=== PATIENT | male | born 1965 | race Caucasian/White ===

== ENCOUNTER 2018-09-26 09:33 | Inpatient (IN) | payer OTHER ==
[2018-09-26 10:08] VITALS: BMI 26.6
--- NOTE | 2018-09-26 10:52 | HP ---
COWS - Scale Resting Pulse: 0= NE 80 or Below Sweatin= Chills/Flushing Restless Observation: 3= Extraneous Movement Pupil Size: 0= Normal to Room Light Bone or Joint Aches: 4=Acute Joint/Muscle Pain Runny Nose/ Eye Tearin= Runny Nose/Eyes GI Upset > 30mins: 2= Nausea/Diarrhea Tremor Observation: 2= Slight Tremor Visible Yawning Observation: 0= None Anxiety or Irritability: 2=Irritable/Anxious Goose Flesh Skin: 0=Smooth Skin COWS Score: 16 CIWA Score - Admission Criteria OASAS Guidelines: Admission for Medically Managed Detox: Requires at least one of the followin. CIWA greater than 12 2. Seizures within the past 24 hours 3. Delirium tremens within the past 24 hours 4. Hallucinations within the past 24 hours 5. Acute intervention needed for co occurring medical disorder 6. Acute intervention needed for co occurring psychiatric disorder 7. Severe withdrawal that cannot be handled at a lower level of care (continued vomiting, continued diarrhea, abnormal vital signs) requiring intravenous medication and/or fluids 8. Admission ROS S - HPI Allergies/Adverse Reactions: Allergies Allergy/AdvReac Type Severity Reaction Status Date / Time Penicillins Allergy Hives Verified 09/26/18 10:01 History of Present Illness: pt here requesting detox from heroin use , reports first age of use 24 ,states this is the first time he is seeking detox , usually 1 bundle heroin daily via inhalation , denies IVDU , latest use yesterday evening , longest sobriety 5-6 years while living in [place] , relapse 4 years ago current symptoms as above . denies other illicits or etoh tobacco : 05/04 ppd PMHX : denies pshx : right wrist surgery for injury 10 years ago psych : depression , denies current SI / HI . SHx : lives w/ , works in construction , denies legal issues . Exam Limitations: Clinical Condition - Ebola screening Have you traveled outside of the country in the last 21 days: No (N) Have you had contact with anyone from an Ebola affected area: No Do you have a fever: No - Review of Systems Constitutional: See HPI EENT: reports: See HPI, Nose Congestion, Other (reading glasses) Respiratory: reports: No Symptoms reported Cardiac: reports: No Symptoms Reported GI: reports: See HPI, Nausea, Poor Appetite : reports: No Symptoms Reported Musculoskeletal: reports: See HPI, Back Pain (chronic LBP) Integumentary: reports: No Symptoms Reported Endocrine: reports: No Symptoms Reported Psychiatric: reports: Orientated x3, Agitated, Anxious Patient History - Smoking Cessation Smoking history: Current every day smoker Have you smoked in the past 12 months: Yes Hx Chewing Tobacco Use: No Initiated information on smoking cessation: No - Substances abused Heroin Substance route: Inhalation Frequency: Daily Amount used: 1 bundle Age of first use: 23 Date of last use: 09/25/18 Family Disease History - Family Disease History Family Disease History: Heart Disease: Mother (mild cva , htn , borderline DM ) , Other: Grandparent (htn), Father (bph), Brother (2, A & W ), Sister (1, a & W ), Son (14 , A & W lives in [place] ) Admission Physical Exam S - Vital Signs Vital Signs: Vital Signs - 24 hr 09/26/18 09/26/18 09:54 10:34 Temperature 97.5 F L 97.5 F L Pulse Rate 60 60 Respiratory 18 18 Rate Blood Pressure 152/73 152/73 - Physical General Appearance: Yes: Moderate Distress, Anxious HEENTM: Yes: EOMI, Hearing grossly Normal, Normocephalic, Normal Voice, Nasal Congestion, Rhinorrhea Respiratory: Yes: Chest Non-Tender, Lungs Clear, Normal Breath Sounds Neck: Yes: No masses,lesions,Nodules, Trachea in good position Cardiology: Yes: Regular Rhythm, Regular Rate, S1, S2 Abdominal: Yes: Non Tender, Soft Back: Yes: Normal Inspection Musculoskeletal: Yes: Gait Steady Extremities: Yes: Normal Range of Motion, Non-Tender, Tremors Neurological: Yes: Fully Oriented, Alert, Motor Strength 5/5, Normal Mood/Affect Integumentary: Yes: Warm, Other (tattoos) - Diagnostic (1) Opioid dependence Current Visit: Yes Status: Acute Qualifiers: Substance use status: in withdrawal Qualified Code(s): F11.23 - Opioid dependence with withdrawal Breathalyzer - Breathalyzer Breathalyzer: 0 Urine Drug Screen - Test Device Lot number: [id number] Expiration date: 08/30/19 - Control Is test valid?: No - Results Drug screen NEGATIVE: No Urine drug screen results: MOP-Opiates Inpatient Rehab Admission - Rehab Decision to Admit Inpatient rehab admission?: No
[2018-09-26] MEDS ORDERED: MAG HYDROX/AL HYDROX/SIMETH 30 ML UNIT-DOSE CUP PO PRN (11:01)
[2018-09-26] MEDS ORDERED: MENTHOL/PHENOL 1 EACH UD MM PRN (11:01)
[2018-09-26] MEDS ORDERED: IBUPROFEN 400 MG TABLET (FP) PO PRN (11:01)
[2018-09-26] MEDS ORDERED: BISMUTH SUBSALICYLATE 262 MG/15 ML BTL PO PRN (11:01)
[2018-09-26] MEDS ORDERED: cloNIDine HCL 0.1 MG TABLET PO PRN (11:01)
[2018-09-26] MEDS ORDERED: ACETAMINOPHEN 325 MG TABLET (FP) PO PRN ×2 (11:01)
[2018-09-26] MEDS ORDERED: hydrOXYzine PAMOATE 25 MG CAPSULE (FP) PO PRN (11:01)
[2018-09-26] MEDS ORDERED: MAGNESIUM CITRATE 300 ML BOTTLE PO PRN (11:01)
[2018-09-26] MEDS ORDERED: MAGNESIUM HYDROX 2400MG/30ML ORAL SUSPENSION 30 ML CUP PO PRN (11:01)
[2018-09-26] MEDS ORDERED: MELATONIN 5 MG TABLETS PO PRN (11:01)
[2018-09-26] MEDS ORDERED: METHOCARBAMOL 500 MG TABLET PO PRN (11:01)
[2018-09-26] MEDS ORDERED: METHADONE HCL 10 MG TABLET (FOR DETOX USE ONLY) PO ONE (11:35)
--- NOTE | 2018-09-26 14:10 | EKG ---
Test Reason : Blood Pressure : / mmHG Vent. Rate : 053 BPM Atrial Rate : 053 BPM P-R Int : 110 ms QRS Dur : 092 ms QT Int : 410 ms P-R-T Axes : 059 038 038 degrees QTc Int : 384 ms SINUS BRADYCARDIA WITH SHORT ND OTHERWISE NORMAL ECG NO PREVIOUS ECGS AVAILABLE Confirmed by Art Moncada MD ([id number]) on 09/26/2018 2:09:57 PM Referred By: Confirmed By:Art Moncada MD
[2018-09-26] MEDS: THIAMINE HCL 100 MG TABLET (FP) PO SCH (22:11)
[2018-09-27] MEDS ORDERED: ONDANSETRON *ODT* 4 MG TABLET SL ONE (09:03)
[2018-09-27] MEDS ORDERED: METHADONE HCL 10 MG TABLET (FOR DETOX USE ONLY) PO ONE (10:00)
[2018-09-27 10:13] LABS: HEMATOCRIT 43.3 % (35.4-49); HEMOGLOBIN 14.4 GM/dL (11.7-16.9); MCH 30.4 pg (25.7-33.7); MCHC 33.2 g/dl (32.0-35.9); MEAN CELL VOLUME 91.4 fl (80-96); MEAN PLT VOLUME 10.3 fl (7.5-11.1); PLATELET COUNT 230 K/MM3 (134-434); RBC 4.74 M/mm3 (4.00-5.60); RDW 13.7 % (11.9-15.9); WHITE BLOOD COUNT 9.5 K/mm3 (4.0-10.0)
[2018-09-27 10:25] LABS: ALBUMIN 3.9 g/dl (3.4-5.0); BILIRUBIN,TOTAL 0.6 mg/dL (0.2-1); CALCIUM 9.5 mg/dL (8.5-10.1); CREATININE 0.9 mg/dL (0.55-1.3); POTASSIUM 3.8 mmol/L (3.5-5.1); TOT PROT 7.1 g/dl (6.4-8.2)
[2018-09-27] MEDS: PRENATAL VITAMINS W/ FOLIC ACID TABLET (FP) PO SCH (10:39)
--- NOTE | 2018-09-27 11:08 | PN ---
BHS COWS - Scale Resting Pulse: 0= [place] 80 or Below Sweatin= Chills/Flushing Restless Observation: 0= Sits Still Pupil Size: 1= Pupils >than Normal Bone or Joint Aches: 1= Mild Discomfort Runny Nose/ Eye Tearin= None GI Upset > 30mins: 3= Vomiting/Diarrhea Tremor Observation of Outstretched Hands: 2= Slight Tremor Visible Yawning Observation: 1= 1-2x During Session Anxiety or Irritability: 2=Irritable/Anxious Goose Flesh Skin: 3=Piloerection COWS Score: 14 BHS Progress Note (SOAP) Subjective: vomited x 1 after breakfast zofran 4 mg sl x 1 Objective: 09/27/18 11:07 Vital Signs Temperature 97.9 F 09/27/18 09:12 Pulse Rate 51 L 09/27/18 09:12 Respiratory Rate 18 09/27/18 09:12 Blood Pressure 131/75 09/27/18 09:12 O2 Sat by Pulse Oximetry (%) Laboratory Last Values WBC 9.5 K/mm3 (4.0-10.0) 09/27/18 07:00 RBC 4.74 M/mm3 (4.00-5.60) 09/27/18 07:00 Hgb 14.4 GM/dL (11.7-16.9) 09/27/18 07:00 Hct 43.3 % (35.4-49) 09/27/18 07:00 MCV 91.4 fl (80-96) 09/27/18 07:00 MCH 30.4 pg (25.7-33.7) 09/27/18 07:00 MCHC 33.2 g/dl (32.0-35.9) 09/27/18 07:00 RDW 13.7 % (11.9-15.9) 09/27/18 07:00 Plt Count 230 K/MM3 (134-434) 09/27/18 07:00 MPV 10.3 fl (7.5-11.1) 09/27/18 07:00 Sodium 141 mmol/L (136-145) 09/27/18 07:00 Potassium 3.8 mmol/L (3.5-5.1) 09/27/18 07:00 Chloride 106 mmol/L (98-107) 09/27/18 07:00 Carbon Dioxide 24 mmol/L (21-32) 09/27/18 07:00 Anion Gap 11 MMOL/L (8-16) 09/27/18 07:00 BUN 13 mg/dL (7-18) 09/27/18 07:00 Creatinine 0.9 mg/dL (0.55-1.3) 09/27/18 07:00 Est GFR (CKD-EPI)AfAm 114.21 09/27/18 07:00 Est GFR (CKD-EPI)NonAf 98.54 09/27/18 07:00 Random Glucose 107 mg/dL (74-106) H 09/27/18 07:00 Calcium 9.5 mg/dL (8.5-10.1) 09/27/18 07:00 Total Bilirubin 0.6 mg/dL (0.2-1) 09/27/18 07:00 AST 17 U/L (15-37) 09/27/18 07:00 ALT 20 U/L (13-61) 09/27/18 07:00 Alkaline Phosphatase 71 U/L (45-117) 09/27/18 07:00 Total Protein 7.1 g/dl (6.4-8.2) 09/27/18 07:00 Albumin 3.9 g/dl (3.4-5.0) 09/27/18 07:00 lab noted Assessment: 09/27/18 11:08 withdrawal sx Plan: continue detox
[2018-09-27] MEDS: THIAMINE HCL 100 MG TABLET (FP) PO SCH (22:40)
[2018-09-28] MEDS ORDERED: METHADONE HCL 10 MG TABLET (FOR DETOX USE ONLY) PO ONE (10:00)
[2018-09-28] MEDS: PRENATAL VITAMINS W/ FOLIC ACID TABLET (FP) PO SCH (10:23)
--- NOTE | 2018-09-28 11:45 | PN ---
BHS COWS - Scale Resting Pulse: 0= [place] 80 or Below Sweatin= Chills/Flushing Restless Observation: 1= Difficult to Sit Still Pupil Size: 1= Pupils >than Normal Bone or Joint Aches: 1= Mild Discomfort Runny Nose/ Eye Tearin= Nasal Congestion GI Upset > 30mins: 1= Stomach Cramp Tremor Observation of Outstretched Hands: 1= Tremor [place], Not Seen Yawning Observation: 2= >3x During Session Anxiety or Irritability: 2=Irritable/Anxious Goose Flesh Skin: 0=Smooth Skin COWS Score: 11 S Progress Note (SOAP) Subjective: doing better today tolerate food and fluid well Objective: 09/28/18 11:44 Vital Signs Temperature 98.1 F 09/28/18 09:19 Pulse Rate 67 09/28/18 09:19 Respiratory Rate 18 09/28/18 09:19 Blood Pressure 137/78 09/28/18 09:19 O2 Sat by Pulse Oximetry (%) Laboratory Last Values WBC 9.5 K/mm3 (4.0-10.0) 09/27/18 07:00 RBC 4.74 M/mm3 (4.00-5.60) 09/27/18 07:00 Hgb 14.4 GM/dL (11.7-16.9) 09/27/18 07:00 Hct 43.3 % (35.4-49) 09/27/18 07:00 MCV 91.4 fl (80-96) 09/27/18 07:00 MCH 30.4 pg (25.7-33.7) 09/27/18 07:00 MCHC 33.2 g/dl (32.0-35.9) 09/27/18 07:00 RDW 13.7 % (11.9-15.9) 09/27/18 07:00 Plt Count 230 K/MM3 (134-434) 09/27/18 07:00 MPV 10.3 fl (7.5-11.1) 09/27/18 07:00 Sodium 141 mmol/L (136-145) 09/27/18 07:00 Potassium 3.8 mmol/L (3.5-5.1) 09/27/18 07:00 Chloride 106 mmol/L (98-107) 09/27/18 07:00 Carbon Dioxide 24 mmol/L (21-32) 09/27/18 07:00 Anion Gap 11 MMOL/L (8-16) 09/27/18 07:00 BUN 13 mg/dL (7-18) 09/27/18 07:00 Creatinine 0.9 mg/dL (0.55-1.3) 09/27/18 07:00 Est GFR (CKD-EPI)AfAm 114.21 09/27/18 07:00 Est GFR (CKD-EPI)NonAf 98.54 09/27/18 07:00 Random Glucose 107 mg/dL (74-106) H 09/27/18 07:00 Calcium 9.5 mg/dL (8.5-10.1) 09/27/18 07:00 Total Bilirubin 0.6 mg/dL (0.2-1) 09/27/18 07:00 AST 17 U/L (15-37) 09/27/18 07:00 ALT 20 U/L (13-61) 09/27/18 07:00 Alkaline Phosphatase 71 U/L (45-117) 09/27/18 07:00 Total Protein 7.1 g/dl (6.4-8.2) 09/27/18 07:00 Albumin 3.9 g/dl (3.4-5.0) 09/27/18 07:00 RPR Titer Nonreactive (NONREACTIVE) 09/27/18 07:00 HIV 1&2 Antibody Screen Negative 09/27/18 07:00 HIV P24 Antigen Negative 09/27/18 07:00 lab noted Assessment: 09/28/18 11:44 opiate withdrawal sx Plan: continue detox
[2018-09-28] MEDS: THIAMINE HCL 100 MG TABLET (FP) PO SCH (22:33)
[2018-09-29] MEDS ORDERED: METHADONE HCL 10 MG TABLET (FOR DETOX USE ONLY) PO ONE (10:00)
[2018-09-29] MEDS: PRENATAL VITAMINS W/ FOLIC ACID TABLET (FP) PO SCH (10:04)
--- NOTE | 2018-09-29 12:30 | PN ---
BHS COWS - Scale Resting Pulse: 0= [place] 80 or Below Sweatin= Chills/Flushing Restless Observation: 1= Difficult to Sit Still Pupil Size: 0= Normal to Room Light Bone or Joint Aches: 1= Mild Discomfort Runny Nose/ Eye Tearin= Nasal Congestion GI Upset > 30mins: 1= Stomach Cramp Tremor Observation of Outstretched Hands: 1= Tremor [place], Not Seen Yawning Observation: 0= None Anxiety or Irritability: 1=Feels Anxious/Irritable Goose Flesh Skin: 0=Smooth Skin COWS Score: 7 BHS Progress Note (SOAP) Subjective: alert,irritable,anxious,interrupted sleep,aching pain Objective: 09/29/18 12:29 Vital Signs Temperature 98.6 F 09/29/18 09:40 Pulse Rate 70 09/29/18 09:40 Respiratory Rate 18 09/29/18 09:40 Blood Pressure 118/80 09/29/18 09:40 O2 Sat by Pulse Oximetry (%) Assessment: 09/29/18 12:30 withdrawal symptom Plan: continue detox,discharge in am
[2018-09-29] MEDS: THIAMINE HCL 100 MG TABLET (FP) PO SCH (22:43)
[2018-09-30] MEDS ORDERED: METHADONE HCL 5 MG TABLET (FOR DETOX USE ONLY) PO ONE (06:00)
[2018-09-30 06:06] VITALS: BP 109/69; PULSE 63; TEMP 97.7
--- NOTE | 2018-09-30 17:55 | DS ---
[facility] Detox Discharge Summary Admission Date: 09/26/18 Discharge Date: 09/30/18 - History Present History: Opioid Dependence Additional Comments: PATIENT GOING HOME FOR TIME BEING, WILL FOLLOW-UP AND APPLY FOR ADMISSION ON HIS OWN TO [facility] ([place], [place]) IN THE NEXT FEW DAYS. PATIENT LEFT DETOX UNIT IN STABLE MEDICAL CONDITION. Pertinent Past History: Depression, History Of Surgery For Injury To Right Wrist. - Physical Exam Results Vital Signs: Vital Signs Temperature 97.7 F 09/30/18 06:06 Pulse Rate 63 09/30/18 06:06 Respiratory Rate 18 09/30/18 06:06 Blood Pressure 109/69 09/30/18 06:06 O2 Sat by Pulse Oximetry (%) Pertinent Admission Physical Exam Findings: WITHDRAWAL SYMPTOMS. Laboratory Tests 09/27/18 09/27/18 09/27/18 07:00 07:00 07:00 WBC 9.5 RBC 4.74 Hgb 14.4 Hct 43.3 MCV 91.4 MCH 30.4 MCHC 33.2 RDW 13.7 Plt Count 230 MPV 10.3 Sodium 141 Potassium 3.8 Chloride 106 Carbon Dioxide 24 Anion Gap 11 BUN 13 Creatinine 0.9 Est GFR (CKD-EPI)AfAm 114.21 Est GFR (CKD-EPI)NonAf 98.54 Random Glucose 107 H Calcium 9.5 Total Bilirubin 0.6 AST 17 ALT 20 Alkaline Phosphatase 71 Total Protein 7.1 Albumin 3.9 RPR Titer Nonreactive HIV 1&2 Antibody Screen HIV P24 Antigen 09/27/18 07:00 WBC RBC Hgb Hct MCV MCH MCHC RDW Plt Count MPV Sodium Potassium Chloride Carbon Dioxide Anion Gap BUN Creatinine Est GFR (CKD-EPI)AfAm Est GFR (CKD-EPI)NonAf Random Glucose Calcium Total Bilirubin AST ALT Alkaline Phosphatase Total Protein Albumin RPR Titer HIV 1&2 Antibody Screen Negative HIV P24 Antigen Negative LABS NOTED. - Treatment Hospital Course: Detox Protocol Followed, Detoxed Safely, Responded well, Discharged Condition Good, Rehab Referral Accepted Patient has Accepted a Rehab Referral to: [facility] ([place], [place]). - Medication Discharge Medications: Ambulatory Orders NK [No Known Home Medication] 09/26/18 - Diagnosis (1) Opioid dependence Status: Acute Qualifiers: Substance use status: in withdrawal Qualified Code(s): F11.23 - Opioid dependence with withdrawal - AMA Did Patient Leave Against Medical Advice: No
== END 2018-09-30 08:36 | disposition home or self-care (01) | DRG 897 ==
LOC: YASAS 09:33 → Y3N 11:24
PROVIDERS: ADMIT Surgery; ATTEND Surgery
PROC: HZ2ZZZZ Detoxification Services for Substance Abuse Treatment (ICD-10-PCS; principal; 2018-09-26)
DX: F11.23 Opioid dependence with withdrawal (principal); F17.210 Nicotine dependence, cigarettes, uncomplicated; Z88.0 Allergy status to penicillin
CPT/HCPCS: 36415; 71045-TC-FY; 80053; 85027; 86593; 87389; 93005; 93010

== ENCOUNTER 2021-06-01 16:09 | Inpatient (IN) | payer OTHER ==
[2021-06-01] MEDS ORDERED: MAGNESIUM HYDROX 2400MG/30ML ORAL SUSPENSION 30 ML CUP PO PRN (18:52)
[2021-06-01] MEDS ORDERED: BISMUTH SUBSALICYLATE 524 MG/30 ML PO PRN (18:52)
[2021-06-01] MEDS ORDERED: ACETAMINOPHEN 325 MG TABLET (FP) PO PRN ×2 (18:52)
[2021-06-01] MEDS ORDERED: DICYCLOMINE HCL 10 MG CAPSULE PO PRN (18:52)
[2021-06-01] MEDS ORDERED: MENTHOL/PHENOL 1 EACH UD MM PRN (18:52)
[2021-06-01] MEDS ORDERED: P-EPHED 60MG/TRIPROLIDI 2.5MG TABLET PO PRN (18:52)
[2021-06-01] MEDS ORDERED: MAGNESIUM CITRATE 300 ML BOTTLE PO PRN (18:52)
[2021-06-01] MEDS ORDERED: ONDANSETRON *ODT* 4 MG TABLET SL PRN (18:52)
[2021-06-01] MEDS ORDERED: MAG HYDROX/AL HYDROX/SIMETH 30 ML UNIT-DOSE CUP PO PRN (18:52)
[2021-06-01] MEDS ORDERED: cloNIDine HCL 0.1 MG TABLET PO PRN (18:55)
[2021-06-01] MEDS ORDERED: methaDONE HCL 10 MG TABLET (FOR DETOX USE ONLY) PO ONE (23:00)
[2021-06-01 23:20] VITALS: BMI 24.9
[2021-06-02] MEDS ORDERED: methaDONE HCL 10 MG TABLET (FOR DETOX USE ONLY) PO ONE ×2 (01:00→10:00)
[2021-06-02] MEDS: THIAMINE HCL 100 MG TABLET (FP) PO SCH ×2 (01:06→22:27)
[2021-06-02] MEDS: MELATONIN 5 MG TABLETS PO SCH ×2 (01:06→22:27)
[2021-06-02] MEDS ORDERED: methaDONE HCL 10 MG TABLET (FOR DETOX USE ONLY) ONE (09:15)
[2021-06-02] MEDS: hydrOXYzine PAMOATE 25 MG CAPSULE (FP) PO PRN ×3 (10:25→22:27)
[2021-06-02] MEDS: METHOCARBAMOL 500 MG TABLET PO PRN ×3 (10:26→22:27)
[2021-06-02] MEDS: IBUPROFEN 400 MG TABLET (FP) PO PRN (10:26)
[2021-06-02] MEDS: NICOTINE 7 MG/24 HOURS TOPICAL PATCH TD SCH (10:28)
[2021-06-02] MEDS: PRENATAL VITAMINS W/ FOLIC ACID TABLET (FP) PO SCH (10:28)
[2021-06-02 12:14] LABS: HEMATOCRIT 38.8 % (35.4-49); HEMOGLOBIN 13.2 GM/dL (11.7-16.9); MCH 31.1 pg (25.7-33.7); MEAN CELL VOLUME 91.3 fl (80-96); MEAN PLT VOLUME 8.3 fl (7.5-11.1); PLATELET COUNT 317 10^3/uL (134-434); RBC 4.25 M/mm3 (4.00-5.60); RDW 13.7 % (11.9-15.9); WHITE BLOOD COUNT 7.5 K/mm3 (4.0-10.0)
[2021-06-02 12:37] LABS: ALBUMIN 3.7 g/dl (3.4-5.0); CALCIUM 9.5 mg/dL (8.5-10.1)
[2021-06-02 12:38] LABS: BLOOD UREA NITROGEN 12.7 mg/dL (7-18)
[2021-06-02 12:41] LABS: CREATININE 0.9 mg/dL (0.55-1.3)
[2021-06-02 12:42] LABS: BILIRUBIN,TOTAL 0.5 mg/dL (0.2-1); TOT PROT 6.6 g/dl (6.4-8.2)
[2021-06-03] MEDS ORDERED: methaDONE HCL 10 MG TABLET (FOR DETOX USE ONLY) PO ONE (10:00)
[2021-06-03] MEDS ORDERED: ONDANSETRON *ODT* 4 MG TABLET SL ONE (10:00)
[2021-06-03] MEDS: METHOCARBAMOL 500 MG TABLET PO PRN (10:39)
[2021-06-03] MEDS: hydrOXYzine PAMOATE 25 MG CAPSULE (FP) PO PRN ×2 (10:40→16:08)
[2021-06-03] MEDS: PRENATAL VITAMINS W/ FOLIC ACID TABLET (FP) PO SCH (10:40)
[2021-06-03] MEDS: NICOTINE 7 MG/24 HOURS TOPICAL PATCH TD SCH (12:22)
[2021-06-03] MEDS: MELATONIN 5 MG TABLETS PO SCH (23:04)
[2021-06-03] MEDS: THIAMINE HCL 100 MG TABLET (FP) PO SCH (23:05)
[2021-06-04] MEDS: hydrOXYzine PAMOATE 25 MG CAPSULE (FP) PO PRN ×2 (01:35→09:16)
[2021-06-04] MEDS: METHOCARBAMOL 500 MG TABLET PO PRN ×2 (01:35→09:16)
[2021-06-04] MEDS: NICOTINE 7 MG/24 HOURS TOPICAL PATCH TD SCH (09:17)
[2021-06-04] MEDS: PRENATAL VITAMINS W/ FOLIC ACID TABLET (FP) PO SCH (09:17)
[2021-06-04] MEDS ORDERED: methaDONE HCL 10 MG TABLET (FOR DETOX USE ONLY) PO ONE (10:00)
[2021-06-04] MEDS: diazePAM 5 MG TABLET PO PRN ×3 (11:48→22:44)
[2021-06-04] MEDS: THIAMINE HCL 100 MG TABLET (FP) PO SCH (22:44)
[2021-06-04] MEDS: MELATONIN 5 MG TABLETS PO SCH (22:44)
[2021-06-05] MEDS: PRENATAL VITAMINS W/ FOLIC ACID TABLET (FP) PO SCH (10:32)
[2021-06-05] MEDS: NICOTINE 7 MG/24 HOURS TOPICAL PATCH TD SCH (10:32)
[2021-06-05] MEDS: diazePAM 5 MG TABLET PO PRN ×3 (13:17→22:45)
[2021-06-05] MEDS: hydrOXYzine PAMOATE 25 MG CAPSULE (FP) PO PRN ×2 (18:32→22:45)
[2021-06-05] MEDS: MELATONIN 5 MG TABLETS PO SCH (22:45)
[2021-06-05] MEDS: THIAMINE HCL 100 MG TABLET (FP) PO SCH (22:45)
[2021-06-06] MEDS ORDERED: methaDONE HCL 10 MG TABLET (FOR DETOX USE ONLY) PO ONE (10:00)
[2021-06-06] MEDS: PRENATAL VITAMINS W/ FOLIC ACID TABLET (FP) PO SCH (10:16)
[2021-06-06] MEDS: NICOTINE 7 MG/24 HOURS TOPICAL PATCH TD SCH (10:19)
[2021-06-06] MEDS: IBUPROFEN 400 MG TABLET (FP) PO PRN (15:41)
[2021-06-06] MEDS: METHOCARBAMOL 500 MG TABLET PO PRN (15:42)
[2021-06-06] MEDS: diazePAM 5 MG TABLET PO PRN ×2 (15:42→22:35)
[2021-06-06] MEDS: THIAMINE HCL 100 MG TABLET (FP) PO SCH (22:35)
[2021-06-06] MEDS: hydrOXYzine PAMOATE 25 MG CAPSULE (FP) PO PRN (22:35)
[2021-06-06] MEDS: MELATONIN 5 MG TABLETS PO SCH (22:35)
[2021-06-07] MEDS: NICOTINE 7 MG/24 HOURS TOPICAL PATCH TD SCH (10:45)
[2021-06-07] MEDS: PRENATAL VITAMINS W/ FOLIC ACID TABLET (FP) PO SCH (10:45)
[2021-06-07 13:26] VITALS: BP 118/72; PULSE 84; TEMP 97.8
== END 2021-06-07 13:48 | disposition other institution (70) | DRG 773 ==
LOC: YASAS 16:09 → Y6N 22:01
PROVIDERS: ADMIT Allergy & Immunology; ATTEND Allergy & Immunology
PROC: HZ2ZZZZ Detoxification Services for Substance Abuse Treatment (ICD-10-PCS; principal; 2021-06-01)
DX: F11.23 Opioid dependence with withdrawal (principal); F14.20 Cocaine dependence, uncomplicated; F17.210 Nicotine dependence, cigarettes, uncomplicated; R03.0 Elevated blood-pressure reading, without diagnosis of hypertension; Z20.2 Contact with and (suspected) exposure to infections with a predominantly sexual mode of transmission; Z86.19 Personal history of other infectious and parasitic diseases; Z88.0 Allergy status to penicillin; Z88.7 Allergy status to serum and vaccine
CPT/HCPCS: 36415; 71046-TC-FY; 80053; 85027; 86593; 86780; C9803; J0735; Q0162; U0003; U0005

== ENCOUNTER 2021-06-07 09:09 | Inpatient (IN) | payer OTHER ==
[2021-06-07] MEDS ORDERED: MENTHOL/PHENOL 1 EACH UD MM PRN (17:12)
[2021-06-07] MEDS ORDERED: MAG HYDROX/AL HYDROX/SIMETH 30 ML UNIT-DOSE CUP PO PRN (17:12)
[2021-06-07] MEDS ORDERED: IBUPROFEN 400 MG TABLET (FP) PO PRN (17:12)
[2021-06-07] MEDS ORDERED: guaiFENesin 200 MG/10 ML 10 ML UNIT-DOSE CUPS PO PRN (17:12)
[2021-06-07] MEDS ORDERED: MAGNESIUM HYDROX 2400MG/30ML ORAL SUSPENSION 30 ML CUP PO PRN (17:12)
[2021-06-07] MEDS ORDERED: ACETAMINOPHEN 325 MG TABLET (FP) PO PRN (17:12)
[2021-06-07] MEDS ORDERED: LOPERAMIDE HCL 2 MG CAPSULE PO PRN (17:12)
[2021-06-07] MEDS ORDERED: MAGNESIUM CITRATE 300 ML BOTTLE PO PRN (17:12)
[2021-06-07] MEDS: THIAMINE HCL 100 MG TABLET (FP) PO SCH (21:20)
[2021-06-07] MEDS: MELATONIN 5 MG TABLETS PO PRN (21:20)
[2021-06-08] MEDS: PRENATAL VITAMINS W/ FOLIC ACID TABLET (FP) PO SCH (10:28)
[2021-06-08] MEDS: hydrOXYzine PAMOATE 25 MG CAPSULE (FP) PO PRN (14:21)
[2021-06-08] MEDS: THIAMINE HCL 100 MG TABLET (FP) PO SCH (21:43)
[2021-06-08] MEDS: MELATONIN 5 MG TABLETS PO PRN (21:43)
[2021-06-09] MEDS: PRENATAL VITAMINS W/ FOLIC ACID TABLET (FP) PO SCH (09:45)
[2021-06-09] MEDS: MELATONIN 5 MG TABLETS PO PRN (21:11)
[2021-06-09] MEDS: THIAMINE HCL 100 MG TABLET (FP) PO SCH (21:11)
[2021-06-10] MEDS: PRENATAL VITAMINS W/ FOLIC ACID TABLET (FP) PO SCH (10:36)
[2021-06-10] MEDS: THIAMINE HCL 100 MG TABLET (FP) PO SCH (21:07)
[2021-06-10] MEDS: MELATONIN 5 MG TABLETS PO PRN (21:07)
[2021-06-11] MEDS: PRENATAL VITAMINS W/ FOLIC ACID TABLET (FP) PO SCH (11:12)
[2021-06-11] MEDS: hydrOXYzine PAMOATE 25 MG CAPSULE (FP) PO PRN (15:10)
[2021-06-11] MEDS ORDERED: NICOTINE 10 MG CARTRIDGE (INHALER) IH PRN (16:17)
[2021-06-11] MEDS: NICOTINE 21 MG/24 HOURS TOPICAL PATCH TD SCH (16:44)
[2021-06-11] MEDS: MELATONIN 5 MG TABLETS PO PRN (21:16)
[2021-06-11] MEDS: THIAMINE HCL 100 MG TABLET (FP) PO SCH (21:16)
[2021-06-12] MEDS: PRENATAL VITAMINS W/ FOLIC ACID TABLET (FP) PO SCH (09:52)
[2021-06-12] MEDS: NICOTINE 21 MG/24 HOURS TOPICAL PATCH TD SCH (09:52)
[2021-06-12] MEDS ORDERED: COLLOIDAL OATMEAL 1 BAR EACH TP PRN (15:41)
[2021-06-12] MEDS: THIAMINE HCL 100 MG TABLET (FP) PO SCH (21:28)
[2021-06-12] MEDS: traZODone HCL 100 MG TABLET (FP) PO PRN (21:29)
[2021-06-13] MEDS: hydrOXYzine PAMOATE 25 MG CAPSULE (FP) PO PRN (10:10)
[2021-06-13] MEDS: PRENATAL VITAMINS W/ FOLIC ACID TABLET (FP) PO SCH (10:11)
[2021-06-13] MEDS: NICOTINE 21 MG/24 HOURS TOPICAL PATCH TD SCH (10:11)
[2021-06-13] MEDS: THIAMINE HCL 100 MG TABLET (FP) PO SCH (21:15)
[2021-06-13] MEDS: traZODone HCL 100 MG TABLET (FP) PO PRN (21:16)
[2021-06-14] MEDS: NICOTINE 21 MG/24 HOURS TOPICAL PATCH TD SCH (10:09)
[2021-06-14] MEDS: PRENATAL VITAMINS W/ FOLIC ACID TABLET (FP) PO SCH (10:09)
[2021-06-14] MEDS: THIAMINE HCL 100 MG TABLET (FP) PO SCH (21:31)
[2021-06-14] MEDS: traZODone HCL 100 MG TABLET (FP) PO PRN (21:32)
[2021-06-15] MEDS: NICOTINE 21 MG/24 HOURS TOPICAL PATCH TD SCH (09:47)
[2021-06-15] MEDS: PRENATAL VITAMINS W/ FOLIC ACID TABLET (FP) PO SCH (09:47)
[2021-06-15] MEDS: traZODone HCL 100 MG TABLET (FP) PO PRN (21:14)
[2021-06-15] MEDS: THIAMINE HCL 100 MG TABLET (FP) PO SCH (21:14)
[2021-06-16] MEDS: NICOTINE 21 MG/24 HOURS TOPICAL PATCH TD SCH (10:35)
[2021-06-16] MEDS: PRENATAL VITAMINS W/ FOLIC ACID TABLET (FP) PO SCH (10:35)
[2021-06-16] MEDS: cloNIDine HCL 0.1 MG TABLET PO PRN (15:54)
[2021-06-16] MEDS: METHOCARBAMOL 500 MG TABLET PO PRN (16:38)
[2021-06-16] MEDS: hydrOXYzine PAMOATE 25 MG CAPSULE (FP) PO PRN (16:38)
[2021-06-16] MEDS: DOXYCYCLINE HYCLATE 100 MG TABLET PO SCH (17:01)
[2021-06-16] MEDS: THIAMINE HCL 100 MG TABLET (FP) PO SCH (22:01)
[2021-06-17] MEDS: DOXYCYCLINE HYCLATE 100 MG TABLET PO SCH ×2 (07:12→17:28)
[2021-06-17] MEDS: PRENATAL VITAMINS W/ FOLIC ACID TABLET (FP) PO SCH (09:45)
[2021-06-17] MEDS: P-EPHED 60MG/TRIPROLIDI 2.5MG TABLET PO PRN (09:46)
[2021-06-17] MEDS: cloNIDine HCL 0.1 MG TABLET PO PRN (09:48)
[2021-06-17] MEDS: THIAMINE HCL 100 MG TABLET (FP) PO SCH (21:31)
[2021-06-18] MEDS: DOXYCYCLINE HYCLATE 100 MG TABLET PO SCH ×2 (06:11→17:26)
[2021-06-18] MEDS: cloNIDine HCL 0.1 MG TABLET PO PRN (10:20)
[2021-06-18] MEDS: METHOCARBAMOL 500 MG TABLET PO PRN (10:21)
[2021-06-18] MEDS: PRENATAL VITAMINS W/ FOLIC ACID TABLET (FP) PO SCH (10:21)
[2021-06-18] MEDS: THIAMINE HCL 100 MG TABLET (FP) PO SCH (22:01)
[2021-06-19] MEDS: DOXYCYCLINE HYCLATE 100 MG TABLET PO SCH ×2 (06:23→17:20)
[2021-06-19] MEDS: PRENATAL VITAMINS W/ FOLIC ACID TABLET (FP) PO SCH (09:48)
[2021-06-19] MEDS: hydrOXYzine PAMOATE 25 MG CAPSULE (FP) PO PRN (09:49)
[2021-06-19] MEDS: THIAMINE HCL 100 MG TABLET (FP) PO SCH (22:04)
[2021-06-20] MEDS: DOXYCYCLINE HYCLATE 100 MG TABLET PO SCH ×2 (06:17→17:04)
[2021-06-20] MEDS: PRENATAL VITAMINS W/ FOLIC ACID TABLET (FP) PO SCH (13:56)
[2021-06-20] MEDS: P-EPHED 60MG/TRIPROLIDI 2.5MG TABLET PO PRN (19:53)
[2021-06-20] MEDS: THIAMINE HCL 100 MG TABLET (FP) PO SCH (21:58)
[2021-06-21] MEDS: DOXYCYCLINE HYCLATE 100 MG TABLET PO SCH ×2 (06:45→17:34)
[2021-06-21] MEDS: PRENATAL VITAMINS W/ FOLIC ACID TABLET (FP) PO SCH (12:13)
[2021-06-21] MEDS: THIAMINE HCL 100 MG TABLET (FP) PO SCH (22:19)
[2021-06-22] MEDS: DOXYCYCLINE HYCLATE 100 MG TABLET PO SCH ×2 (06:23→17:24)
[2021-06-22] MEDS: PRENATAL VITAMINS W/ FOLIC ACID TABLET (FP) PO SCH (10:36)
[2021-06-22] MEDS: THIAMINE HCL 100 MG TABLET (FP) PO SCH (22:26)
[2021-06-23] MEDS: DOXYCYCLINE HYCLATE 100 MG TABLET PO SCH ×2 (06:43→17:16)
[2021-06-23 07:19] VITALS: TEMP 98.8
[2021-06-23] MEDS: PRENATAL VITAMINS W/ FOLIC ACID TABLET (FP) PO SCH (10:38)
[2021-06-23] MEDS: THIAMINE HCL 100 MG TABLET (FP) PO SCH (21:56)
[2021-06-24] MEDS: DOXYCYCLINE HYCLATE 100 MG TABLET PO SCH (06:10)
[2021-06-24 07:19] VITALS: BP 145/90; PULSE 81
== END 2021-06-24 09:49 | disposition home or self-care (01) | DRG 772 ==
LOC: YASAS 09:09 → Y3W 09:10
PROVIDERS: ADMIT Allergy & Immunology; ATTEND Allergy & Immunology
PROC: HZ42ZZZ Group Counseling for Substance Abuse Treatment, Cognitive-Behavioral (ICD-10-PCS; principal; 2021-06-07)
DX: F11.20 Opioid dependence, uncomplicated (principal); F14.20 Cocaine dependence, uncomplicated; F17.210 Nicotine dependence, cigarettes, uncomplicated; F19.282 Other psychoactive substance dependence with psychoactive substance-induced sleep disorder; Z86.19 Personal history of other infectious and parasitic diseases; Z56.0 Unemployment, unspecified; Z59.00 Homelessness unspecified
CPT/HCPCS: C9803; J0735; U0003; U0005